=== PATIENT | male | born 1945 | race Caucasian/White ===

== ENCOUNTER 2021-08-15 14:04 | Inpatient (IN) | payer MEDICARE, OTHER ==
[~2021-08-15] VITALS: Ht 175.3 cm; Wt 65.3 kg
[2021-08-15] MEDS ORDERED: methylPREDNISolone SOD SUCC 125 MG/2 ML VIAL IV ONE (14:30)
[2021-08-15] MEDS ORDERED: IPRATROPIUM BROMIDE 0.5 MG/2.5 ML NEBU NEB ONE (14:30)
[2021-08-15] MEDS ORDERED: CEFEPIME HCL 2 G in IV DEXTROSE 5% 100 ML IV ONE (14:30)
[2021-08-15] MEDS ORDERED: ALBUTEROL SULFATE 2.5 MG/3 ML NEBU NEB ONE (14:30)
[2021-08-15] MEDS ORDERED: IV NORMAL SALINE 1000 ML BAG IV ONE (14:30)
[2021-08-15] MEDS ORDERED: ALBUTEROL SULFATE 2.5 MG/3 ML NEBU ONE (14:31)
[2021-08-15] MEDS ORDERED: IPRATROPIUM BROMIDE 0.5 MG/2.5 ML NEBU ONE (14:31)
[2021-08-15 14:35] LABS: ABG BASE EXCESS -4.2 mmol/L; ABG HCO3 18.8 mmol/L; ABG PCO2 28.6 mmHg (35.0-45.0); ABG PH 7.436 (7.350-7.450); ABG PO2 77.7 mmHg (75.0-100.0); ABG SITE RIGHT RADIAL; ABG TOTAL HEMOGLOBIN 12.2 G/dL (13.5-18.0); COHb 0.4 % (0.5-1.5); MetHb 0.3 % (0.0-1.5); O2Hb 94.9 % (94.0-97.0)
[2021-08-15 14:43] LABS: HEMATOCRIT 34.1 % (36.7-47.1); MEAN CORPUSCULAR HEMOGLOBIN 30.9 uug (23.8-33.4); MEAN CORPUSCULAR VOLUME 93.3 fL (73.0-96.2); PLATELET COUNT (AUTO) 151 K/uL (152-348)
[2021-08-15 15:02] LABS: CARBON DIOXIDE 21 mmol/L (21-32); CHLORIDE 103 mmol/L (98-107); CREATININE 5.7 mg/dL (0.6-1.3); GLUCOSE 116 mg/dL (74-106); POTASSIUM 4.1 mmol/L (3.5-5.1); UREA NITROGEN, BLOOD 46 mg/dL (7-18)
[2021-08-15 15:07] LABS: ALANINE AMINOTRANSFERASE 33 U/L (16-63); BILIRUBIN,DIRECT 0.4 mg/dL (0.0-0.2); BILIRUBIN,TOTAL 0.8 mg/dL (0.2-1.0); TOTAL PROTEIN, SERUM 6.9 g/dL (6.4-8.2)
[2021-08-15] MEDS ORDERED: ALLO100T56 PO (15:07)
[2021-08-15] MEDS ORDERED: AMLO-212 PO (15:07)
[2021-08-15 15:09] LABS: ASPARTATE AMINOTRANSFERASE 111 U/L (15-37)
[2021-08-15] MEDS ORDERED: TAMS-3 PO (15:14)
[2021-08-15] MEDS ORDERED: TRAZ-182 PO (15:14)
[2021-08-15] MEDS ORDERED: ACET-73 PO (15:14)
[2021-08-15] MEDS ORDERED: BISA10SU61 RC (15:14)
[2021-08-15] MEDS ORDERED: NITR0.4T48 SL (15:14)
[2021-08-15] MEDS ORDERED: NA P133E RC (15:14)
[2021-08-15] MEDS ORDERED: SENN-18 PO (15:14)
[2021-08-15] MEDS ORDERED: MAGN400O6 PO (15:14)
[2021-08-15] MEDS ORDERED: FOLI0.8T2 PO (15:14)
[2021-08-15] MEDS ORDERED: BICA50TA49 PO (15:14)
[2021-08-15] MEDS ORDERED: FAMO40TA71 PO (15:14)
[2021-08-15] MEDS ORDERED: ACET-2154 PO (15:14)
[2021-08-15 15:25] LABS: ALKALINE PHOSPHATASE 3480 U/L (50-136)
[2021-08-15] MEDS ORDERED: methylPREDNISolone SOD SUCC 125 MG/2 ML VIAL ONE (15:43)
[2021-08-15] MEDS ORDERED: CEFEPIME HCL 1 G VIAL ONE (15:43)
--- NOTE | 2021-08-15 18:02 | NUR ---
Patient is resting comfortably in bed with eyes closed
[2021-08-15] MEDS ORDERED: CEFEPIME HCL 0.5 G in IV DEXTROSE 5% 50 ML IV SCH (18:30)
[2021-08-15] MEDS ORDERED: ONDANSETRON 4 MG/2 ML VIAL IV PRN (18:30)
[2021-08-15] MEDS ORDERED: ACETAMINOPHEN 325 MG TABLET PO PRN (18:30)
[2021-08-15] MEDS ORDERED: HYDROCODONE/APAP 5-325MG TABLET PO PRN (18:30)
[2021-08-15] MEDS ORDERED: REMEDY ESSENTIAL ZINC PASTE 113 GM TP PRN (18:30)
--- NOTE | 2021-08-15 19:11 | NUR ---
Report recived from Jalen BINGHAM. Pt resting in bed. No distress noted.
--- NOTE | 2021-08-15 20:12 | NUR ---
Report given to Padmini PARISH
[2021-08-15] MEDS ORDERED: IPRATROPIUM BROMIDE 0.5 MG/2.5 ML NEBU NEB SCH (20:45)
[2021-08-15] MEDS ORDERED: ALBUTEROL SULFATE 2.5 MG/ 0.5 ML NEBU NEB SCH (20:45)
[2021-08-15] MEDS ORDERED: HEPARIN SODIUM,PORCINE 5,000 UNITS/ML VIAL SQ ONE (21:00)
[2021-08-15] MEDS ORDERED: VANCOMYCIN IV 750 MG in IV DEXTROSE 5% 250 ML IV ONE (22:00)
--- NOTE | 2021-08-15 22:00 | NUR ---
Admitted to Tele. Transferred from ER via [facility], assisted by JEM Shaffer. Patient is ambulatory with assistance. Alert and Oriented x 4. Patent IV site on R AC 20 g. Pitting edema +3 on right foot. Elevated both heels. O2 at 2LPM NC. Permacath on right upper chest. Dressing clean and dry. Per patient, he had dialysis yesterday. Scheduled for dialysis tomorrow. Patient on Regular diet. Patient asked for food. Snacks provided. Call light in reach. Bed in low position. Safety measures in place. Will continue to monitor.
--- NOTE | 2021-08-15 22:03 | NUR ---
Pt. admitted to Tele room 301A, under care of Kuldeep Rizvi NP. Belongs List completed
[2021-08-15] MEDS ORDERED: VANCOMYCIN IV 200 ML ONE (22:28)
[2021-08-15] MEDS ORDERED: HEPARIN SODIUM,PORCINE 5,000 UNITS/ML VIAL ONE (23:51)
[2021-08-16] VITALS: BP 103/45
[2021-08-16] MEDS: methylPREDNISolone SOD SUCC 40 MG/ML VIAL IV SCH ×4 (00:09→21:07)
[2021-08-16] MEDS: IPRATROPIUM BROMIDE 0.5 MG/2.5 ML NEBU NEB SCH ×4 (00:55→20:02)
[2021-08-16] MEDS: ALBUTEROL SULFATE 2.5 MG/ 0.5 ML NEBU NEB SCH ×4 (00:55→20:03)
[2021-08-16 04:00] VITALS: BP 98/56
[2021-08-16] MEDS ORDERED: VANCOMYCIN IV 500 MG in IV DEXTROSE 5% 100 ML IV PRN (05:45)
--- NOTE | 2021-08-16 06:00 | NUR ---
Patient refused lab work. Risk and benefits explained. Patient continued to refuse. Will endorse to oncoming shift.
[2021-08-16 08:09] LABS: HEMATOCRIT 32.4 % (36.7-47.1); MEAN CORPUSCULAR HEMOGLOBIN 31.1 uug (23.8-33.4); MEAN CORPUSCULAR VOLUME 92.6 fL (73.0-96.2); PLATELET COUNT (AUTO) 116 K/uL (152-348)
[2021-08-16] MEDS: ALLOPURINOL 100 MG TABLET PO SCH (08:09)
[2021-08-16] MEDS: FOLIC ACID/VITAMIN B COMP W-C TABLET PO SCH (08:09)
[2021-08-16] MEDS: BICALUTAMIDE 50 MG TABLET PO SCH (08:10)
[2021-08-16] MEDS: AMLODIPINE 5 MG TABLET PO SCH ×2 (08:11→21:06)
[2021-08-16 08:16] LABS: CARBON DIOXIDE 21 mmol/L (21-32); CHLORIDE 101 mmol/L (98-107); CREATININE 6.8 mg/dL (0.6-1.3); GLUCOSE 125 mg/dL (74-106); MAGNESIUM 2.2 mg/dL (1.8-2.4); PHOSPHOROUS 4.3 mg/dL (2.5-4.9); POTASSIUM 4.3 mmol/L (3.5-5.1); UREA NITROGEN, BLOOD 62 mg/dL (7-18)
[2021-08-16 12:00] VITALS: BP 103/59
--- NOTE | 2021-08-16 14:03 | NUR ---
Patient to be NPO at midnight. Will endorse information to PM nurse.
--- NOTE | 2021-08-16 14:04 | NUR ---
Patient to be NPO after midnight. Addendum: 08/16/21 at 1405 by ADIA DELCID RN Amended: Links added.
--- NOTE | 2021-08-16 14:07 | NUR ---
Patient receiving dialysis. Pharmacy notified due to change in IV medication administration. Will call when dialysis is complete to arrange new time for medication time.
[2021-08-16 15:47] VITALS: BP 110/49
--- NOTE | 2021-08-16 16:42 | NUR ---
Dialysis complete with a total output of 2L. Pharmacy notified. Time adjusted to receive Cefepime and Vanco.
[2021-08-16] MEDS: CEFEPIME HCL 1 G in IV DEXTROSE 5% 50 ML IV SCH (16:53)
[2021-08-16] MEDS ORDERED: VANCOMYCIN IV 750 MG in IV DEXTROSE 5% 250 ML IV ONE (18:00)
--- NOTE | 2021-08-16 19:30 | NUR ---
Received patient lying in bed. AAOx4. In no acute distress. Denies any pain or SOB. Noted his IV was pulled out. Will start new IV. NSR on tele with HR of 86/min. Needs assessed and attended to. Safety measure initiated and call light within reached.
[2021-08-16 20:00] VITALS: BP 117/66
[2021-08-16] MEDS: TRAZODONE 50 MG TABLET PO SCH (21:06)
[2021-08-16] MEDS: TAMSULOSIN HCL 0.4 MG CAP.SR.24H PO SCH (21:06)
[2021-08-17] VITALS: BP 142/69
[2021-08-17] MEDS: IPRATROPIUM BROMIDE 0.5 MG/2.5 ML NEBU NEB SCH ×4 (01:24→21:17)
[2021-08-17] MEDS: ALBUTEROL SULFATE 2.5 MG/ 0.5 ML NEBU NEB SCH ×4 (01:24→21:18)
[2021-08-17 04:00] VITALS: BP 107/63
[2021-08-17] MEDS: methylPREDNISolone SOD SUCC 40 MG/ML VIAL IV SCH ×2 (05:15→21:07)
--- NOTE | 2021-08-17 05:47 | NUR ---
AAOx4. In no acute distress. Denies any pain or SOB. IV site on left upper arm intact and patent. NSR on tele with HR of 93/min. Needs attended to and met. Safety measure maintained and call light within reached.
[2021-08-17 06:30] LABS: HEMATOCRIT 30.2 % (36.7-47.1); MEAN CORPUSCULAR HEMOGLOBIN 31.5 uug (23.8-33.4); MEAN CORPUSCULAR VOLUME 91.2 fL (73.0-96.2); PLATELET COUNT (AUTO) 115 K/uL (152-348)
[2021-08-17 06:56] LABS: ASPARTATE AMINOTRANSFERASE 93 U/L (15-37); BILIRUBIN,TOTAL 0.6 mg/dL (0.2-1.0); CARBON DIOXIDE 25 mmol/L (21-32); CHLORIDE 94 mmol/L (98-107); CREATININE 4.9 mg/dL (0.6-1.3); GLUCOSE 149 mg/dL (74-106); PHOSPHOROUS 3.5 mg/dL (2.5-4.9); POTASSIUM 3.6 mmol/L (3.5-5.1); UREA NITROGEN, BLOOD 46 mg/dL (7-18)
[2021-08-17 07:22] LABS: ALANINE AMINOTRANSFERASE 36 U/L (16-63); ALKALINE PHOSPHATASE 2528 U/L (50-136); MAGNESIUM 2.1 mg/dL (1.8-2.4); TOTAL PROTEIN, SERUM 6.7 g/dL (6.4-8.2)
[2021-08-17 08:06] LABS: HEPATITIS B SURFACE AG Negative (Negative)
[2021-08-17] MEDS: ALLOPURINOL 100 MG TABLET PO SCH (08:15)
[2021-08-17] MEDS: BICALUTAMIDE 50 MG TABLET PO SCH (08:16)
[2021-08-17] MEDS: FOLIC ACID/VITAMIN B COMP W-C TABLET PO SCH (08:16)
[2021-08-17] MEDS: AMLODIPINE 5 MG TABLET PO SCH ×2 (08:19→21:55)
[2021-08-17 11:58] VITALS: BP 120/66
[2021-08-17 12:02] VITALS: BP 120/66
[2021-08-17] MEDS: CEFEPIME HCL 1 G in IV DEXTROSE 5% 50 ML IV SCH (14:02)
[2021-08-17 16:03] VITALS: BP 129/66
--- NOTE | 2021-08-17 18:25 | NUR ---
Patient received care well throughout shift with no signs of distress or pain. Patient denies any pain during shift. Patient is AOX4. 2L Oxygen saturating at 95%. Patient is bed bound, and refused PT treatment today. Patient wearing diaper with urinal at bedside. IV site patent and intact. Bed left in lowest position with call light within reach. Comfort measures provided. Will endorse information to PM nurse.
[2021-08-17 20:00] VITALS: BP 139/63
[2021-08-17] MEDS: TAMSULOSIN HCL 0.4 MG CAP.SR.24H PO SCH (21:07)
[2021-08-17] MEDS: TRAZODONE 50 MG TABLET PO SCH (21:08)
[2021-08-17] MEDS: CEFTRIAXONE 1 G in IV DEXTROSE 5% 50 ML IV SCH (22:18)
[2021-08-18] VITALS: BP 134/68
[2021-08-18] MEDS: IPRATROPIUM BROMIDE 0.5 MG/2.5 ML NEBU NEB SCH ×4 (00:41→20:49)
[2021-08-18] MEDS: ALBUTEROL SULFATE 2.5 MG/ 0.5 ML NEBU NEB SCH ×4 (00:41→20:49)
[2021-08-18 04:00] VITALS: BP 130/71
[2021-08-18 06:34] LABS: HEMATOCRIT 31.2 % (36.7-47.1); MEAN CORPUSCULAR HEMOGLOBIN 31.2 uug (23.8-33.4); MEAN CORPUSCULAR VOLUME 91.5 fL (73.0-96.2); PLATELET COUNT (AUTO) 120 K/uL (152-348)
[2021-08-18 06:48] LABS: CARBON DIOXIDE 24 mmol/L (21-32); CHLORIDE 94 mmol/L (98-107); CREATININE 6.2 mg/dL (0.6-1.3); GLUCOSE 131 mg/dL (74-106); PHOSPHOROUS 4.6 mg/dL (2.5-4.9); POTASSIUM 4.7 mmol/L (3.5-5.1); UREA NITROGEN, BLOOD 73 mg/dL (7-18)
[2021-08-18] MEDS: methylPREDNISolone SOD SUCC 40 MG/ML VIAL IV SCH ×2 (08:06→20:10)
[2021-08-18] MEDS: FOLIC ACID/VITAMIN B COMP W-C TABLET PO SCH (08:07)
[2021-08-18] MEDS: AMLODIPINE 5 MG TABLET PO SCH ×2 (08:07→20:13)
[2021-08-18] MEDS: BICALUTAMIDE 50 MG TABLET PO SCH (08:07)
[2021-08-18] MEDS: ALLOPURINOL 100 MG TABLET PO SCH (08:08)
[2021-08-18] MEDS: ASPIRIN 81 MG TAB.CHEW PO SCH (10:08)
[2021-08-18] MEDS: METOPROLOL SUCCINATE XL 50 MG TAB.SR.24H PO SCH (10:09)
[2021-08-18 11:18] VITALS: BP 116/68
[2021-08-18 15:05] VITALS: BP 123/60
--- NOTE | 2021-08-18 18:22 | NUR ---
Patient received care well throughout shift with no complaints of pain or distress. Dialysis performed today. 2L. Bed left in lowest position with call light within reach. Comfort measures provided. Will endorse information to PM nurse.
--- NOTE | 2021-08-18 19:30 | NUR ---
Pt is A&Ox4. No complaints of pain or SOB. IV site on left arm intact and patent. No edema on left foot noted. All needs attended. Call light in reach. Will continue to monitor. Continue plan of care.
[2021-08-18] MEDS: ATORVASTATIN 40 MG TABLET PO SCH (20:11)
[2021-08-18] MEDS: TAMSULOSIN HCL 0.4 MG CAP.SR.24H PO SCH (20:11)
[2021-08-18] MEDS: TRAZODONE 50 MG TABLET PO SCH (20:14)
[2021-08-18 20:17] VITALS: BP 110/65
[2021-08-18] MEDS: CEFTRIAXONE 1 G in IV DEXTROSE 5% 50 ML IV SCH (20:27)
[2021-08-19 00:36] VITALS: BP 110/61
[2021-08-19] MEDS: ALBUTEROL SULFATE 2.5 MG/ 0.5 ML NEBU NEB SCH ×4 (00:43→20:38)
[2021-08-19] MEDS: IPRATROPIUM BROMIDE 0.5 MG/2.5 ML NEBU NEB SCH ×4 (00:43→20:37)
[2021-08-19 04:28] VITALS: BP 109/62
[2021-08-19 06:38] LABS: HEMATOCRIT 33.7 % (36.7-47.1); MEAN CORPUSCULAR VOLUME 92.5 fL (73.0-96.2); PLATELET COUNT (AUTO) 138 K/uL (152-348)
[2021-08-19 07:30] LABS: ALANINE AMINOTRANSFERASE 55 U/L (16-63); ALKALINE PHOSPHATASE 4667 U/L (50-136); ASPARTATE AMINOTRANSFERASE 296 U/L (15-37); BILIRUBIN,TOTAL 0.7 mg/dL (0.2-1.0); CARBON DIOXIDE 21 mmol/L (21-32); CHLORIDE 93 mmol/L (98-107); CHOLESTEROL 148 mg/dL (<200); GLUCOSE 151 mg/dL (74-106); HDL CHOLESTEROL 60 mg/dL (40-60); MAGNESIUM 2.2 mg/dL (1.8-2.4); PHOSPHOROUS 5.8 mg/dL (2.5-4.9); TRIGLYCERIDES 99 MG/DL (30-150); UREA NITROGEN, BLOOD 71 mg/dL (7-18)
--- NOTE | 2021-08-19 08:00 | NUR ---
resting in bed, still gets short of breath with exertion, head of bed elevated, on 2l n[address] st at 97%, explained plan of care-verbalized understanding, right chest wall permacath intact with dsg, safety measures maintained, call light within reach
[2021-08-19] MEDS: ASPIRIN 81 MG TAB.CHEW PO SCH (09:00)
[2021-08-19] MEDS: METOPROLOL SUCCINATE XL 50 MG TAB.SR.24H PO SCH (09:00)
[2021-08-19] MEDS: methylPREDNISolone SOD SUCC 40 MG/ML VIAL IV SCH ×2 (09:00→20:33)
[2021-08-19] MEDS: AMLODIPINE 5 MG TABLET PO SCH ×2 (09:00→20:36)
[2021-08-19] MEDS: ALLOPURINOL 100 MG TABLET PO SCH (09:01)
[2021-08-19] MEDS: FOLIC ACID/VITAMIN B COMP W-C TABLET PO SCH (09:01)
[2021-08-19] MEDS: BICALUTAMIDE 50 MG TABLET PO SCH (09:06)
[2021-08-19 09:42] VITALS: BP 103/58
[2021-08-19] MEDS ORDERED: BISACODYL 10 MG SUPP.RECT RC ONE (11:15)
--- NOTE | 2021-08-19 11:38 | NUR ---
medicated for c/o constipation with small amount of stool
[2021-08-19 14:01] VITALS: BP 104/63
[2021-08-19 18:12] VITALS: BP 112/61
--- NOTE | 2021-08-19 18:56 | NUR ---
resting in bed, no distress noted, all needs attended and met, call light within reach
[2021-08-19] MEDS: TAMSULOSIN HCL 0.4 MG CAP.SR.24H PO SCH (20:34)
[2021-08-19] MEDS: CEFTRIAXONE 1 G in IV DEXTROSE 5% 50 ML IV SCH (20:34)
[2021-08-19] MEDS: TRAZODONE 50 MG TABLET PO SCH (20:35)
[2021-08-19] MEDS: ATORVASTATIN 40 MG TABLET PO SCH (20:35)
[2021-08-19 20:54] VITALS: BP 101/61
[2021-08-20 00:51] VITALS: BP 104/58
[2021-08-20] MEDS: ALBUTEROL SULFATE 2.5 MG/ 0.5 ML NEBU NEB SCH ×3 (02:36→14:01)
[2021-08-20] MEDS: IPRATROPIUM BROMIDE 0.5 MG/2.5 ML NEBU NEB SCH ×3 (02:36→14:01)
[2021-08-20 04:20] VITALS: BP 113/47
--- NOTE | 2021-08-20 07:10 | NUR ---
RECEIVED PT ON BED RESTING. VITALS WNL. ON 2L NC SATURATING AT 95%. NO SOB NOTED. NO ACUTE DISTRESS NOTED. LEFT IV 20G SL INTACT AND PATENT. PATIENT IS AOX4.
[2021-08-20] MEDS: AMLODIPINE 5 MG TABLET PO SCH (09:00)
[2021-08-20] MEDS: METOPROLOL SUCCINATE XL 50 MG TAB.SR.24H PO SCH (09:00)
[2021-08-20] MEDS: BICALUTAMIDE 50 MG TABLET PO SCH (09:23)
[2021-08-20] MEDS: ASPIRIN 81 MG TAB.CHEW PO SCH (09:24)
[2021-08-20] MEDS: FOLIC ACID/VITAMIN B COMP W-C TABLET PO SCH (09:24)
[2021-08-20] MEDS: methylPREDNISolone SOD SUCC 40 MG/ML VIAL IV SCH (09:24)
[2021-08-20] MEDS: ALLOPURINOL 100 MG TABLET PO SCH (09:25)
[2021-08-20 12:00] VITALS: BP 97/58
[2021-08-20] MEDS ORDERED: PRED20TA PO (13:04)
[2021-08-20] MEDS ORDERED: TAMS-3 PO (13:04)
[2021-08-20] MEDS ORDERED: ACET325T53 PO (13:04)
[2021-08-20] MEDS ORDERED: AMOX-427 PO (13:04)
[2021-08-20] MEDS ORDERED: ACID1TAB4 PO (13:04)
--- NOTE | 2021-08-20 13:35 | NUR ---
DR. KOWALSKI MAKE A DISCHARGE ORDER. PATIENT IS GOING BACK TO [facility] PER [facility].
--- NOTE | 2021-08-20 14:00 | NUR ---
EDUCATE PATIENT REGARDING THE DISCHARGE SUMMARY. ALL INFO PERTINENT TO DISCHARGE WAS GIVEN TO THE PATIENT. PATIENT VERBALIZED UNDERSTANDING.
[2021-08-20 15:43] VITALS: BP 112/61
--- NOTE | 2021-08-20 15:45 | NUR ---
AT 1530 REPORT GIVEN TO LAURENCE PARISH OF [facility]. ALL PERTINENT INFO WAS GIVEN. 1545 PATIENT WAS [facility] [facility]PER[facility] BY [facility]. VITALS 120/63 HR 88 TEMP 97.5 O2 SAT 93 ON 2L/MIN. PATIENT VERBALIZED HES EXCITED TO GO TOME. NO SOB. NO ACUT4E DISTRESS. ALL BELONGINGS ACCOUNTED FOR.
[2021-08-20] MEDS ORDERED: methylPREDNISolone SOD SUCC 40 MG/ML VIAL IV SCH (21:00)
== END 2021-08-20 15:45 | DRG 871 ==
LOC: ER 14:04 → TELE3 21:23
PROVIDERS: ADMIT Internal Medicine; ATTEND Internal Medicine
PROC: 5A1D70Z Performance of Urinary Filtration, Intermittent, Less than 6 Hours Per Day (ICD-10-PCS; principal; 2021-08-16)
DX: A41.9 Sepsis, unspecified organism (principal); J18.9 Pneumonia, unspecified organism; N18.6 End stage renal disease; J96.01 Acute respiratory failure with hypoxia; E43 Unspecified severe protein-calorie malnutrition; I50.23 Acute on chronic systolic (congestive) heart failure; J44.0 Chronic obstructive pulmonary disease with (acute) lower respiratory infection; J44.1 Chronic obstructive pulmonary disease with (acute) exacerbation; I13.2 Hypertensive heart and chronic kidney disease with heart failure and with stage 5 chronic kidney disease, or end stage renal disease; J90 Pleural effusion, not elsewhere classified; D68.69 Other thrombophilia; Z99.2 Dependence on renal dialysis; D69.6 Thrombocytopenia, unspecified; E78.5 Hyperlipidemia, unspecified; I25.10 Atherosclerotic heart disease of native coronary artery without angina pectoris; I25.5 Ischemic cardiomyopathy; I34.0 Nonrheumatic mitral (valve) insufficiency; Z85.46 Personal history of malignant neoplasm of prostate; Z20.822 Contact with and (suspected) exposure to COVID-19; Z86.711 Personal history of pulmonary embolism; Z95.1 Presence of aortocoronary bypass graft; Z87.891 Personal history of nicotine dependence; N40.0 Benign prostatic hyperplasia without lower urinary tract symptoms; Z86.79 Personal history of other diseases of the circulatory system; K59.00 Constipation, unspecified; Z99.3 Dependence on wheelchair; R53.1 Weakness; Z74.09 Other reduced mobility; F32.A Depression, unspecified; D63.1 Anemia in chronic kidney disease; N25.0 Renal osteodystrophy; R74.8 Abnormal levels of other serum enzymes; M19.90 Unspecified osteoarthritis, unspecified site; M10.9 Gout, unspecified; R73.9 Hyperglycemia, unspecified; N28.1 Cyst of kidney, acquired; Z68.21 Body mass index [BMI] 21.0-21.9, adult; R23.8 Other skin changes
CPT/HCPCS: 36415; 36600; 71045; 76700; 83605; 83735; 84100; 84443; 84484; 85025; 86706; 86803; 87040; 87340; 87806; 90937; 93005; 93307; 94640; 94664; 97161; A4663; G0378; J0692; J0696; J1644; J2920; J2930; J3370; J3590; J7040; J7050; J7060; J8499